=== PATIENT | male | born 2000 | race African-American/Black ===

== ENCOUNTER 2019-04-23 19:08 | Emergency (ER) | payer BC, OTHER ==
[2019-04-23 19:17] VITALS: BP 100/76; PULSE 59; TEMP 98; BMI 26.6
[2019-04-23] MEDS ORDERED: IBUPROFEN 600 MG TABLET (FP) PO ONE ×2 (19:41→19:56)
[2019-04-23] MEDS ORDERED: DIPHTH,PERTUSS(ACELL),TET 0.5 ML DISP.SYRIN IM ONE ×2 (20:44→20:49)
--- NOTE | 2019-04-23 20:54 | PDOC ---
History of Present Illness - General Chief Complaint: Injury Stated Complaint: LACERATION Time Seen by Provider: 04/23/19 19:41 - History of Present Illness Initial Comments: 04/23/19 20:50 19-year-old male without comorbidities not sure of his current tetanus status presents for evaluation of a left second finger injury when a window slammed on his finger as he was putting up [employer] decorations. Past History - Past Medical History Allergies/Adverse Reactions: Allergies Allergy/AdvReac Type Severity Reaction Status Date / Time No Known Allergies Allergy Verified 04/23/19 19:17 Home Medications: Ambulatory Orders NK [No Known Home Medication] 04/23/19 COPD: No - Psycho Social/Smoking Cessation Hx Smoking History: Never smoked Review of Systems - Review of Systems Musculoskeletal: Yes: See HPI, Joint Pain *Physical Exam - Vital Signs Last Vital Signs Temp Pulse Resp BP Pulse Ox 98 F 59 L 18 100/76 99 04/23/19 19:14 04/23/19 19:14 04/23/19 19:14 04/23/19 19:14 04/23/19 19:14 - Physical Exam 04/23/19 20:51 Left second finger skin color and temperature normal FDS and FDP work independently. There is a crush injury at the tip of the finger on the dorsum on the skin overlying the distal phalanx the nail matrix is avulsed no gross sensorimotor deficits ED Treatment Course - RADIOLOGY Radiology Studies Ordered: Category Date Time Status FINGER(S) LEFT [RAD] Stat Radiology 04/23/19 19:42 Taken - Medications Given in the ED: ED Medications Discontinued Medications Generic Name Dose Route Start Last Admin Trade Name Sriniq PRN Reason Stop Dose Admin Ibuprofen 600 mg 04/23/19 19:41 04/23/19 19:51 Motrin - PO 04/23/19 19:42 600 mg ONCE ONE Administration Medical Decision Making - Medical Decision Making 04/23/19 20:51 Under aseptic technique a digital block was introduced the area was flushed thoroughly with normal saline 4 simple interrupted sutures were placed using 3- 0 Vicryl at the proximal aspect of the nail and it was tucked under the nail fold. Xeroform dressing was placed tetanus was updated Discharge - Discharge Information Problems reviewed: Yes Clinical Impression/Diagnosis: Nail avulsion, finger, Injury, crush, finger Condition: Stable Disposition: HOME - Admission No - Follow up/Referral Referrals: Jus Alicia MD [Staff Physician] - - Patient Discharge Instructions Additional Instructions: The sutures are absorbable and should full out by themselves within the next 5 to 7 days. Please keep the dressing on you may remove the splint to bend her finger so it does not get stiff. The splint is for protection only. Tylenol and Motrin as directed for pain. Return to the emergency room for worsening symptoms. Without fail please follow-up with orthopedic hand surgery in 2 to 3 days for further evaluation and treatment options. You may remove the dressing in 4 days and wash her finger with soap and water and leave it open to air do not apply any ointments or creams if you are out you have to work you may cover the area with a dry sterile dressing such as gauze or Band-Aid you do not need to wear the splint the splint is only for protection. - Post Discharge Activity Work/Back to School Note: Back to Work
== END 2019-04-23 21:02 | disposition home or self-care (01) ==
LOC: JERFT 19:08
PROC: 0HQQXZZ Repair Finger Nail, External Approach (ICD-10-PCS; principal; 2019-04-23)
DX: S61.311A Laceration without foreign body of left index finger with damage to nail, initial encounter (principal); W23.0XXA Caught, crushed, jammed, or pinched between moving objects, initial encounter; Y93.89 Activity, other specified; Y92.038 Other place in apartment as the place of occurrence of the external cause; Y99.8 Other external cause status
CPT/HCPCS: 73140-TC-LT-FY; 90715; 99282-25